=== PATIENT | female | born 1960 | race Caucasian/White ===

== ENCOUNTER 2021-11-26 14:00 | Emergency (ER) | payer OTHER ==
[2021-11-26 15:58] LABS: BILIRUBIN NEGATIVE (NEGATIVE); BLOOD 3+ Ery/uL (NEGATIVE); CLARITY CLEAR (CLEAR); COLOR YELLOW (YELLOW); GLUCOSE (U) NORMAL (NORMAL); LEUKOCYTES TRACE Leu/uL (NEGATIVE); NITRITE NEGATIVE (NEGATIVE); PROTEIN TRACE (LOW) mg/dL (NEGATIVE); UROBILINOGEN 0.2 mg/dL (0.2-1.0)
[2021-11-26 16:06] LABS: BACTERIA TRACE; URINARY WBC RARE
[2021-11-26] MEDS ORDERED: PREDNISONE 20MG20 MG PO (16:44)
[2021-11-26] MEDS ORDERED: ZPAK PO (16:44)
== END 2021-11-26 17:01 | disposition home or self-care (01) ==
LOC: FER 14:00
PROVIDERS: Nurse Practitioner Family
DX: J02.0 Streptococcal pharyngitis (principal); I10 Essential (primary) hypertension; J44.9 Chronic obstructive pulmonary disease, unspecified; Z88.0 Allergy status to penicillin
CPT/HCPCS: 81001; J1100; J7030